=== PATIENT | female | born 1975 | race Asian ===

== ENCOUNTER 2017-07-19 20:53 | Emergency (ER) | payer OTHER | END 2017-07-19 23:36 | disposition home or self-care (01) | LOC: FTE 20:53 | DX: R51 Headache (principal); R10.13 Epigastric pain; Z79.84 Long term (current) use of oral hypoglycemic drugs | CPT/HCPCS: 70450; 93005; 99284-25 ==

== ENCOUNTER 2018-08-31 09:57 | Emergency (ER) | payer OTHER ==
[2018-08-31] MEDS: predniSONE 20 MG TAB PO (11:43)
[2018-08-31] MEDS: ALBUTEROL 0.5% (NEB) 2.5 MG/0.5 ML AMP INH (11:47)
== END 2018-08-31 12:56 | disposition home or self-care (01) ==
LOC: E/R 09:57
DX: J06.9 Acute upper respiratory infection, unspecified (principal); J45.41 Moderate persistent asthma with (acute) exacerbation; R07.9 Chest pain, unspecified
CPT/HCPCS: 71045; 94644; 99283-25

== ENCOUNTER 2018-10-25 11:00 | Emergency (ER) | payer OTHER ==
[2018-10-25 12:27] LABS: ADD UMIC YES; UR ASCORBIC ACID NEGATIVE (NEGATIVE); UR BACTERIA FEW /HPF (NONE SEEN); UR BILIRUBIN (Dip) NEGATIVE (NEGATIVE); UR BLOOD (Dip) 3+ mg/dL (NEGATIVE); UR CLARITY CLEAR (CLEAR); UR COLOR STRAW (YELLOW); UR GLUCOSE (Dip) NEGATIVE (NEGATIVE); UR KETONES (Dip) NEGATIVE (NEGATIVE); UR LEUKOCYTE ESTERASE (Dip) TRACE Leu/ul (NEGATIVE); UR NITRITE (Dip) NEGATIVE (NEGATIVE); UR RBC 0 /HPF (0-5); UR TOTAL PROTEIN (Dip) NEGATIVE (NEGATIVE); UR UROBILINOGEN (Dip) NEGATIVE (NEGATIVE); UR WBC 1 /HPF (0-5)
== END 2018-10-25 13:33 | disposition home or self-care (01) ==
LOC: FTE 11:00
DX: N39.0 Urinary tract infection, site not specified (principal)
CPT/HCPCS: 81001; 99283